=== PATIENT | female | born 1970 | race Caucasian/White ===

== ENCOUNTER 2018-09-28 00:50 | Outpatient (CLI) | payer BC, SELFPAY ==
--- NOTE | 2018-09-28 07:41 | DI.MAMMO_ITS ---
SYMPTOM/DIAGNOSIS: SCREENING, [facility], Z00.00 MAMMOGRAMS: Mammograms were interpreted according to the usual protocol including computer analysis with CAD system, tomosynthesis and C view imaging. Comparison is made with prior examinations. Breast density, Category D. No masses or microcalcifications are seen. There is nothing to suggest malignancy. IMPRESSION: Negative mammogram. Routine screening is recommended. Category 1. MQSA ASSESSMENT OF FINDINGS: Negative. Category 1. Patient will receive a letter notifying them of these results. BI-RADS category D. The breasts are extremely dense, which lowers the sensitivity of mammography.
== END 2018-09-28 01:10 ==
PROVIDERS: PCP Nurse Practitioner Family; Visit Provider Nurse Practitioner Family
DX: Z12.31 Encounter for screening mammogram for malignant neoplasm of breast (principal)
CPT/HCPCS: 77063; 77067

== ENCOUNTER 2018-09-29 09:38 | Outpatient (REF) | payer BC, SELFPAY ==
[2018-09-29 12:48] LABS: ALT 21 U/L (12-78); AST 15 U/L (15-37); Albumin 3.9 g/dL (3.4-5.0); Alkaline Phosphatase 64 U/L (46-116); Anion Gap 9.2 mmol/L (3-11); BUN 8 mg/dL (7-18); Bilirubin, Total 0.6 mg/dL (0.2-1.0); CO2 25.8 mmol/L (21.0-32.0); CREATININE 0.85 mg/dL (0.55-1.02); Calcium 8.9 mg/dL (8.5-10.1); Chloride 104 mmol/L (98-107); Cholesterol 189 mg/dL (50-200); Glucose 90 mg/dL (70-100); HDL Cholesterol 81 mg/dL (40-60); LDL CHOLESTEROL 97 mg/dL (<100); Potassium 4.1 mmol/L (3.5-5.1); Sodium 139 mmol/L (136-145); Triglyceride 72 mg/dL (30-150)
== END 2018-09-29 09:58 ==
LOC: NCHCN 09:38
PROVIDERS: PCP Nurse Practitioner Family; Visit Provider Nurse Practitioner Family
DX: Z13.6 Encounter for screening for cardiovascular disorders (principal); Z13.220 Encounter for screening for lipoid disorders
CPT/HCPCS: 80053; 80061; 83721

== ENCOUNTER 2020-01-13 05:58 | Day surgery (SDC) | payer BC, SELFPAY ==
[2020-01-13 06:12] VITALS: BP 121/81; PULSE 83; RESP 18; TEMP 36.7; O2SAT 99
[2020-01-13] MEDS: Lactated Ringers 1,000 ML 80 ML IV (06:42)
--- NOTE | 2020-01-13 07:18 | W.PM.DSUDISC ---
Discharge Plan Disposition Patient Disposition: HOME Condition: Good Discharge Details Reason For Visit: Colonoscopy Attending Provider: Silvia Lyons Primary Care Provider: Madan Mckeon Home Meds and New Rx's Prescriptions: Continued vitamin E 200 UNIT capsule 200 unit PO DAILY RF: 0 ascorbic acid (vitamin C) [Vitamin C] 500 MG tablet 500 mg PO DAILY RF: 0 vitamin B complex 1 EACH tablet 1 ea PO DAILY RF: 0 albuterol sulfate [ProAir HFA] 200 PUFF HFA aerosol inhaler 0 puff Inhalation Q4H PRN PRNRF: 0 Discontinued polyethylene glycol 3350 17 gram/dose powder 238 g PO ONCE Qty: 238 RF: 0 bisacodyl [Dulcolax (bisacodyl)] 5 mg tablet,delayed release (DR/EC) 5 mg PO ONCE Qty: 4 RF: 0 Discharge Instructions Additional Instructions: Findings: Your colonoscopy was normal. Follow up: Plan for routine colon screening in 10 years or sooner if symptoms arise. Please call if you develop: fevers >101.5 Nausea or Vomiting Abdominal pain that is not transient DAY SURGERY UNIT POST COLONOSCOPY INSTRUCTIONS 1. Because there will be medication in your system for the next 24 hours, you may feel a little sleepy. Your coordination will be affected. Therefore: a. Do not drive or operate dangerous equipment for 24 hours. b. Do not drink alcohol beverages for 24 hours (not even beer). c. Plan to go home and rest for the day. 2. Generally there are no restrictions on your activity after a day or so has gone by, but you may feel a bit fatigued for a few days. 3 After you arrive home you may have a light meal and return to a normal diet as you can tolerate it without feeling sick to your stomach. 4. After surgery, you may feel pain or discomfort. This should be only transient, but if it persists please contact your doctor. 5. If there are any questions regarding the findings of your procedure, please feel free to contact your doctor. 6. If you are unable to contact your doctor with a problem, contact the hospital at [phone]. 7. Continue all your regular medications unless directed otherwise. I understand the above instructions and have no questions. Signature of Patient or Responsible Adult Escort Date/Time Name of Responsible Adult Escort Signature of Nurse Date/Time Activity:: Activity as Tolerated Diet:: As Tolerated Discharge Orders Discharge Orders: Discharge Order (Routine); Ordered 01/13/20 Ordered By: Silvia Lyons DS: Diagnosis Discharge Diagnosis (1) Normal colonoscopy: Status: Acute
--- NOTE | 2020-01-13 08:40 | COLE_ITS ---
REPORT OF OPERATIVE PROCEDURE DATE OF PROCEDURE January 13, 2010 PREOPERATIVE DIAGNOSES Screening. POSTOPERATIVE DIAGNOSIS Normal. PROCEDURE Colonoscopy. SURGEON Silvia Lyons M.D. ANESTHESIA General. INDICATION This is a 49-year-old woman who presents for her first screening colonoscopy. She is asymptomatic and has no family history of colon cancer. PROCEDURE DESCRIPTION She was placed in the left Ques[place] position. Propofol was titrated to sedation. Digital rectal examinati on revealed no abnormalities. The scope was advanced to the cecum without difficulty. The ileocecal v alve and the appendiceal orifice were clearly identified. Her prep was excellent. The scope was slowl y withdrawn with no abnormalities seen within the ascending, transverse, descending, sigmoid colon or rectum including on retroflexed view. She tolerated the procedure well and was stable to Recovery. She will need a followup screening again in 10 years or sooner if symptoms indicate.
[2020-01-13 09:03] VITALS: BP 119/88; PULSE 67; RESP 17; TEMP 36.3; O2SAT 99
== END 2020-01-13 09:41 | disposition home or self-care (01) ==
PROVIDERS: PCP Nurse Practitioner Family; Visit Provider Surgery
PROC: 0DJD8ZZ Inspection of Lower Intestinal Tract, Via Natural or Artificial Opening Endoscopic (ICD-10-PCS; CPT 45378; principal; 2020-01-13 07:45)
DX: Z12.11 Encounter for screening for malignant neoplasm of colon (principal)
CPT/HCPCS: 45378; J2250; J2704

== ENCOUNTER 2021-03-06 02:21 | Outpatient (CLI) | payer BC, SELFPAY ==
--- NOTE | 2021-03-06 07:35 | DI.MAMMO_ITS ---
EXAM: MG MAMMO SCREENING CLINICAL HISTORY: SCREENING, Z12.39. TECHNIQUE: Bilateral full field digital CC and MLO mammographic images were obtained with 3D tomosyn thesis and utilizing computer aided detection (CAD). COMPARISON: Prior mammograms dating back to 2012, the most recent being September 2018. FINDINGS: Fibroglandular tissue is very dense, this decreasing the sensitivity of the mammogram for finding hid den underlying lesions. No new obvious radiographic findings in the right breast. Posteriorly in left breast up again the chest wall there is a group of microcalcifications not previo usly evident which will require spot Mag views. This is located approximately 8 cm in from the nippl e on the MLO view. There is no significant architectural distortion nor skin thickening-retraction. IMPRESSION: Dense bilateral fibroglandular tissue. No obvious radiographic evidence of malignancy in the right b reast. Left breast posteriorly located microcalcification group which required 2D spot compression v iews including MLO, straight lateral, and exaggerated CC views of this region. BI-RADS Category 0 - Assessment Incomplete: Need additional imaging evaluation Breast Density - Category D - Extremely dense Breast density Category C or D implies that the patient has dense breast tissue. Dense breast tissue can make it harder to find cancer on a mammogram. Dense breast tissue is also associated with an incr eased risk of breast cancer. This information about the result of the mammogram report was provided to the patient to raise their awareness. Use this report when you speak with the patient about their risks for breast cancer, which includes their family history. At that time, you may recommend additional screening tests (Ultrasoun d or MRI) as these tests may add significant information. A negative radiographic report should not delay biopsy if a dominant or clinically suspicious mass is present. Up to ten percent of cancers are not identified on mammography. A negative report may reinforce clinical impression. Adenosis and dense breasts may obscure an underlying neoplasm. False positive reports average 6 to 10%. Patient will receive a letter notifying them of these results.
== END 2021-03-06 02:41 ==
PROVIDERS: PCP Nurse Practitioner Family; Visit Provider Nurse Practitioner Family
DX: Z12.31 Encounter for screening mammogram for malignant neoplasm of breast (principal); R92.8 Other abnormal and inconclusive findings on diagnostic imaging of breast
CPT/HCPCS: 77063; 77067

== ENCOUNTER 2021-03-08 03:39 | Outpatient (CLI) | payer BC, SELFPAY ==
--- NOTE | 2021-03-08 14:40 | DI.MAMMO_ITS ---
EXAM: MG MAMMO SCREEN CALL BACK UNI CLINICAL HISTORY: F/U MAMMO, LT BREAST CHEST WALL MICROCALCIFICATIONS. TECHNIQUE: Craniocaudal and mediolateral oblique Full Field Digital Mammography views of the left br east with Computer Aided Diagnosis. COMPARISON: Priors available for comparison. FINDINGS: Mammography/Tomosynthesis: Masses/Architectural Distortion: None seen. Microcalcifictions: No suspicious pleomorphic-type are seen. Skin Thickening/Nipple Retraction: None. IMPRESSION: 1. No evidence of malignancy is noted. 2. Unless there is more urgent need, follow-up screening mammography is recommended, as per [place] [employer] guidelines. 3. The findings were discussed with the patient on the date of the examination. BI-RADS Category 1 - Negative Breast Density - Category D - Extremely dense Breast density Category C or D implies that the patient has dense breast tissue. Dense breast tissue can make it harder to find cancer on a mammogram. Dense breast tissue is also associated with an incr eased risk of breast cancer. This information about the result of the mammogram report was provided to the patient to raise their awareness. Use this report when you speak with the patient about their risks for breast cancer, which includes their family history. At that time, you may recommend additional screening tests (Ultrasoun d or MRI) as these tests may add significant information. A negative radiographic report should not delay biopsy if a dominant or clinically suspicious mass is present. Up to ten percent of cancers are not identified on mammography. A negative report may reinforce clinical impression. Adenosis and dense breasts may obscure an underlying neoplasm. False positive reports average 6 to 10%. Patient will receive a letter notifying them of these results.
== END 2021-03-08 03:59 ==
PROVIDERS: PCP Nurse Practitioner Family; Visit Provider Nurse Practitioner Family
DX: Z12.31 Encounter for screening mammogram for malignant neoplasm of breast (principal); R92.8 Other abnormal and inconclusive findings on diagnostic imaging of breast; N64.59 Other signs and symptoms in breast
CPT/HCPCS: 77063; 77067

== ENCOUNTER 2023-10-27 16:26 | Outpatient (REF) | payer BC, SELFPAY ==
--- OUTSIDE RECORDS SUMMARY | 2023-10-27 16:29 | XMS_ITS | CCD ---
Author Name Unknown Address [address] [place] [address] [id number] Organization Unknown Address [address] [place] [address] [id number] Care Team Providers Care Staff Mechanical Engineer Name Role Phone ROSETTE SELBY Attending Physician [phone] ROSETTE SELBY Er Physician 9 [phone] SIOBHAN Paz Registered Nurse [phone] Vital Signs Vital Sign Value Unit Date/Time Recent/Initial ? BMI (Body Mass Index) 19.97 kg/m^2 12/15/2022 14: 08 Initial VS Weight Measured 120 lbs 12/15/2022 14:08 Ini tial VS Height 65 in 12/15/2022 14:08 Initial VS BSA (Body Surface Area) 1.58 m^2 12/15/2022 1 4:08 Initial VS BP Systolic 132 mmHg 12/15/2022 14:08 Initial VS BP Diastolic 88 mmHg 12/15/2022 14:08 Initia l VS Respiratory Rate 18 bpm 12/15/2022 14:08 In itial VS Heart Rate 87 bpm 12/15/2022 14:08 Initial VS O2 % BldC Oximetry 100 % 12/15/2022 14:08 Initial VS Body Temperature 36.6 degrees 12/15/2022 14:08 In itial VS Allergies Allergy Code Allergy Type Reaction Status No Known Allergies 0 No known allergies Active Procedures Unknown or Not Available. History of Immunizations Unknown or Not Available. Problems Problem Code Start Date Resolved Date Status Foot injury [id number] Active Results Unknown or Not Available. Active Medications Medication Code Dose Units Frequency Route Modificatio n Start Date/Time PATIENT OR PATIENT'S FAMILY DENIES 0 1 DAILY ORAL 2018 21:34 Prescription Detail TAKE 1 ORAL DAILY PROVENTIL HFA 0.09MG/1ACTUATI ON INH 0 2 PUFF EVERY 4 HOURS, NEEDED INHALATION 01/13/2019 21:34 Prescription Detail 2 PUFF INHALATION EVERY 4 HOURS, NEED ED Medications Administered During Visit Unknown or Not Available. Encounters Encounter Diagnosis Diagnosis Code Start Date Contusion of left foot, initial encounter [id number] A 12/15/2022 Social History Smoking Status Code Start Date End Date Never smoker [id number] Patient Decision Aids Unknown or Not Available. Discharge Instructions You were admitted to [facility] on 12/15/2022 13:00 with a principal diagnosis of Contusion of left foot, initial encounter You were discharged from [facility] on 12/15/2022 15:20 Should you have any questions prior to discharge, please contact a member of your healthcare team. If you have left the hospital and have any questions, please contact your primary care physician. Chief Complaint and Reason For Visit Chief Complaint Date of Onset SWOLLEN LEFT FOOT Function Status Unknown or Not Available. Plan of Care Unknown or Not Available. Referral/Transition of Care Unknown or Not Available.
[2023-10-27 18:34] LABS: Abs Immature Grans 0.01 10^3/uL (0.0-0.06); Absolute Basophil Count 0.06 10^3/uL (0.0-0.2); Absolute Eosinophil Count 0.11 10^3/uL (0.0-0.7); Absolute Lymphocyte Count 1.88 10^3/uL (1.2-3.4); Absolute Neutrophil Count 2.86 10^3/uL (1.2-6.7); Basophils % 1.1; Eosinophils % 2.1; HCT 42.1 % (36.0-46.0); HGB 13.7 g/dL (11.2-15.7); Immature Grans % 0.2; MCH 29.8 pg (27.0-33.0); MCHC 32.5 % (32.0-36.0); MCV 92 fL (80-95); MPV 10.1 fL (8.0-11.0); Monocytes % 5.7; Neutrophils % 54.9; Platelet Count 269 10^3/uL (130-400); RBC 4.59 10^6/uL (3.93-5.22); RDW 12.9 % (11.7-14.6); RDW-SD 43.2 fL; WBC 5.22 10^3/uL (4.4-10.8)
[2023-10-27 18:59] LABS: ALT 25 U/L (14-59); AST 17 U/L (15-37); Albumin 4.1 g/dL (3.4-5.0); Alkaline Phosphatase 76 U/L (46-116); Anion Gap 6.6 mmol/L (3-11); BUN 11 mg/dL (7-18); Bilirubin, Total 0.3 mg/dL (0.2-1.0); CO2 29.4 mmol/L (21.0-32.0); CREATININE 0.9 mg/dL (0.55-1.02); Calcium 9.4 mg/dL (8.5-10.1); Calculated LDL 158 mg/dL (<100); Chloride 104 mmol/L (98-107); Cholesterol 257 mg/dL (<200); Estimated GFR 75.97 (mL/min/1.73m2); Glucose 99 mg/dL (74-106); HDL Cholesterol 83 mg/dL (40-60); Potassium 4.2 mmol/L (3.5-5.1); Sodium 140 mmol/L (136-145); TSH (W/Ref FT4) 1.38 uIU/mL (0.36-3.74); Total Protein 7.7 g/dL (6.4-8.2); Triglyceride 81 mg/dL (<150)
[2023-10-28 09:50] LABS: FREE T4 0.83 ng/dL (0.76-1.46)
== END 2023-10-27 16:27 | disposition home or self-care (01) ==
LOC: NCHCN 16:26
PROVIDERS: Visit Provider Nurse Practitioner Family
DX: N95.9 Unspecified menopausal and perimenopausal disorder (principal); Z13.220 Encounter for screening for lipoid disorders
CPT/HCPCS: 80053; 80061; 84439; 84443; 85025

== ENCOUNTER → 2023-11-30 03:21 | Outpatient (CLI) | payer BC, SELFPAY ==
--- OUTSIDE RECORDS SUMMARY | 2023-11-30 03:25 | XMS_ITS | CCD ---
Author Name Unknown Address [address] [place] [address] [id number] Organization Unknown Address [address] [place] [address] [id number] Care Team Providers Care Heat And Frost Insulator Name Role Phone ROSETTE SELBY Attending Physician [phone] ROSETTE SELBY Er Physician 7 [phone] SIOBHAN Paz Registered Nurse [phone] Vital Signs Vital Sign Value Unit Date/Time [...] Start Date Resolved Date Status Foot injury [id number] Active Results Unknown or Not Available. Active [...] Date Contusion of left foot, initial encounter [id number] A 12/15/2022 Social History Smoking Status Code Start Date End Date Never smoker [id number] Patient Decision Aids Unknown or Not Available. Discharge Instructions You were admitted to [facility] on 12/15/2022 13:00 with a principal diagnosis of Contusion of left foot, initial encounter You were discharged from [facility] on 12/15/2022 15:20 Should you have any [...]
--- NOTE | 2023-11-30 11:52 | DI.MAMMO_ITS ---
Exam(s) MAMMO SCREENING EXAM: MAMMO SCREENING CLINICAL HISTORY: SCREENING, Z12.39 TECHNIQUE: Bilateral full field digital CC and MLO mammographic images were obtained with 3D tomosyn thesis and utilizing computer aided detection (CAD). COMPARISON: Available for comparison. FINDINGS: Masses/Architectural Distortion: None seen. Microcalcifications: No suspicious pleomorphic-type are seen. Skin Thickening/Nipple Retraction: None. IMPRESSION: 1. No significant interval change with no specific features of malignancy noted. 2. Unless there is more urgent need, screening mammography is recommended, as per [employer] guidelines. BI-RADS Category 1 - Negative Breast Density - Category D - Extremely dense Breast density category C or D implies that the patient has dense breast tissue. Dense breast tissue is very common and is not abnormal but dense breast tissue can make it harder to find cancer on a ma mmogram. Also, dense breast tissue may increase their breast cancer risk. This information about the result of the mammogram report was provided to the patient to raise their awareness. Use this report when you speak with the patient about their risks for breast cancer, which includes their family hist ory. At that time, you may recommend for more screening tests (Ultrasound or MRI) as they might be us eful based on their risk. A negative radiographic report should not delay biopsy if a dominant or clinically suspicious mass is present. Up to ten percent of cancers are not identified on mammography. A negative report may reinforce clinical impression. Adenosis and dense breasts may obscure an underlying neoplasm. False positive reports average 6 to 10%. Patient will receive a letter notifying them of these results.
== END ==
PROVIDERS: Visit Provider Nurse Practitioner Family
DX: Z12.31 Encounter for screening mammogram for malignant neoplasm of breast (principal)
CPT/HCPCS: 77063; 77067

== ENCOUNTER 2025-07-27 14:42 | Outpatient (REF) | payer OTHER, SELFPAY ==
[2025-07-27 19:44] LABS: Abs Immature Grans 0.01 10^3/uL (0.0-0.06); HCT 37.5 % (36.0-46.0); HGB 11.9 g/dL (11.2-15.7); Immature Grans % 0.2 %; MCH 29.1 pg (27.0-33.0); MCHC 31.7 % (32.0-36.0); MCV 92 fL (80-95); MPV 10.0 fL (8.0-11.0); Platelet Count 295 10^3/uL (130-400); RBC 4.09 10^6/uL (3.93-5.22); RDW 14.2 % (11.7-14.6); RDW-SD 48.2 fL; WBC 4.76 10^3/uL (4.4-10.8)
[2025-07-27 20:04] LABS: ALT 82 U/L (14-59); AST 41 U/L (15-37); Albumin 4.0 g/dL (3.4-5.0); Alkaline Phosphatase 98 U/L (46-116); Anion Gap 6.4 mmol/L (3-11); BUN 9 mg/dL (7-18); Bilirubin, Total 0.3 mg/dL (0.2-1.0); CO2 30.6 mmol/L (21.0-32.0); Calcium 9.2 mg/dL (8.5-10.1); Calculated LDL 184 mg/dL (<100); Chloride 101 mmol/L (98-107); Cholesterol 271 mg/dL (<200); Estimated GFR 105.28 (mL/min/1.73m2); Glucose 97 mg/dL (74-106); HDL Cholesterol 62 mg/dL (>or=50); Potassium 4.2 mmol/L (3.5-5.1); Sodium 138 mmol/L (136-145); TSH 0.83 uIU/mL (0.36-3.74); Total Protein 6.9 g/dL (6.4-8.2); Triglyceride 126 mg/dL (<150)
[2025-07-28 14:45] LABS: Iron 49 ug/dL (50-170); Total Iron Binding Capacity 257 ug/dL (250-450); Transferrin Sat 19 % (15-50)
[2025-07-28 16:25] LABS: Ferritin 353 ng/mL (8-252)
== END 2025-07-27 14:43 | disposition home or self-care (01) ==
LOC: NCHCN 14:42
PROVIDERS: PCP Nurse Practitioner Family
DX: Z00.00 Encounter for general adult medical examination without abnormal findings (principal); R53.82 Chronic fatigue, unspecified; R53.83 Other fatigue
CPT/HCPCS: 80053; 80061; 82728; 83540; 83550; 84439; 84443; 85025